=== PATIENT | female | born 1930 | race Caucasian/White ===

== ENCOUNTER → 2016-12-11 | Outpatient (CLI) | payer MEDICARE, BC ==
--- NOTE | 2016-12-11 17:37 | RADRPT ---
PROCEDURE: XR Right hip and pelvis. CLINICAL INDICATION: Right hip pain. Pelvic pain. TECHNIQUE: Two views. Frontal pelvis and lateral right hip. COMPARISON: No prior studies are available for comparison. FINDINGS: There is no fracture or dislocation. The soft tissues are normal. There are degenerative changes of the right hip with joint space narrowing and osteophytes. The left hip is grossly normal. There is no lytic or blastic lesion. Surgical clips are present in the left side of the pelvis. The upper pelvis is not completely included on the image. IMPRESSION: 1. 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 2. Grossly normal appearance of the left hip and pelvis. 3. Prior left-sided pelvic surgery. RPTAT: QQ .Conner Coats MD, MD Date Time Electronically viewed and signed by .Conner Coats MD, on 12/11/2016 17:37 .R/
== END | disposition home or self-care (01) ==
LOC: HKI 14:21
DX: M25.551 Pain in right hip (principal); R10.2 Pelvic and perineal pain
CPT/HCPCS: 73502